=== PATIENT | female | born 1975 | race Two or more races ===

== ENCOUNTER 2022-09-18 05:28 | Day surgery (SDC) | payer OTHER ==
[~2022-09-18] VITALS: Ht 154.9 cm; Wt 54.0 kg
[~2022-09-18 05:28] MED LIST: PANTOPRAZOLE SO40 MG PO; TIROSINT88 MCG PO
[2022-09-18] MEDS ORDERED: TRAM1TAB98 PO (09:08)
[2022-09-18] MEDS ORDERED: PROTONIX40 MG PO (09:09)
== END 2022-09-18 11:20 | disposition home or self-care (01) ==
LOC: CIR.AMB 05:28
PROVIDERS: ATTEND Surgery
DX: K81.1 Chronic cholecystitis (principal); Z20.822 Contact with and (suspected) exposure to COVID-19; I10 Essential (primary) hypertension